=== PATIENT | female | born 1960 | race Caucasian/White ===

== ENCOUNTER 2021-03-06 09:46 | Outpatient (RCR) | payer MEDICARE ==
[~2021-03-06 09:46] MED LIST: ADDERALL 20 MG20 MG PO; AMBIEN10 MG PO; METFORMIN HCL500 MG PO; PIOGLITAZONE15 MG PO; POTASSIUM 10 MEQ; Z.0.ATIVAN1 MG PO; Z.0.CELEXA40 MG PO; Z.0.CO-GESIC 5-5001 PO; Z.0.FLEXERIL10 MG PO; Z.0.HYDROCHLOROTHIA2 PO; Z.0.MULTIVITAMINS1 E; Z.0.NEXIUM40 MG PO; Z.0.RAMIPRIL10 MG PO; Z.0.SIMVASTATIN40 MG PO; Z.0.XANAX0.25 MG PO
== END 2021-03-22 ==
LOC: PT 09:46
PROVIDERS: ATTEND Specialist
DX: M17.12 Unilateral primary osteoarthritis, left knee (principal)

== ENCOUNTER → 2021-12-25 | Day surgery (SDC) | payer MEDICARE ==
[2021-12-24 08:41] LABS: BASOPHILS % 0.5 % (0.0-1.0); EOSINOPHILS # (AUTO) 0.3 (0.0-0.4); EOSINOPHILS % 3.2 % (0.0-6.0); HEMATOCRIT 44.2 % (34.2-44.1); HEMOGLOBIN 14.8 g/dL (12.0-16.0); LYMPHOCYTES # (AUTO) 3.4 (1.0-3.2); LYMPHOCYTES % 40.2 % (18.0-39.1); MEAN CORPUSCULAR HEMOGLOBIN 31.2 pg (28-32); MEAN CORPUSCULAR HGB CONC 33.5 g/dL (31-35); MEAN CORPUSCULAR VOLUME 93.1 fL (81-99); MONOCYTES # (AUTO) 0.7 (0.2-0.8); MONOCYTES % 8.3 % (4.4-11.3); NEUTROPHILS % 47.6 % (38.7-80.0); PLATELET COUNT 236 x10e3/uL (140-360); RED BLOOD COUNT 4.75 x10e6/uL (3.6-5.1); RED CELL DISTRIBUTION WIDTH 12.3 % (11.7-14.4)
[2021-12-24 09:13] LABS: ANION GAP 11.6 mmol/L (8-16); CALCIUM 9.4 mg/dL (8.4-10.2); POTASSIUM 4.6 mmol/L (3.5-5.1)
[~2021-12-25] MED LIST changes: +ALLERGY RELIEF10 M4 PO; +BUPIVACAINE HCL 0.5% INJ 30 ML VIAL INJ ONE; +BUPROPION XL150 MG PO; +ESCITALOPRAM OX20 MG PO; +ESTRADIOL TOP; +ESTROGENS CONJUGATED VAGINAL CR 45 GM TUBE PV ONE; +FENTANYL CITRATE/PF 100MCG/2 ML INJ ONE; +GLIMEPIRIDE2 MG PO; +INDIGOTINDISULFONATE SODIUM 8 MG/ML AMP IJ ONE; +JARDIANCE25 MG PO; +KLONOPIN0.5 MG PO; +LIDOCAINE 1% W/EPINEPHRINE 20 ML VIAL ONE; +LIDOCAINE HCL 2% LOCAL INJ 5 ML SDV VIAL INJ ONE; +MIDAZOLAM HCL 2 MG/2 ML VIAL ONE; +MIRTAZAPINE7.5 MG PO; +MULTI-VITAMIN1 EACH PO; +ONDANSETRON HCL INJ 2MG/ML 2ML 2 MG/ML VIAL ONE; +PANTOPRAZOLE SO40 MG PO; +POVIDONE IODINE 0.05% 0.05 % ML PO ONE; +PROPOFOL IV EMULSION 10 MG/ML 20 ML VIAL ONE; +PROPRANOLOL HCL10 MG PO; +SEVOFLURANE INHAL SOLN 250 ML PEN BTL ONE; +TRULICITY4.5 MG/0.5 SC
[2021-12-25 15:40] VITALS: BP 127/80
== END | disposition home or self-care (01) ==
LOC: OR 10:57
PROVIDERS: ATTEND Obstetrics & Gynecology
DX: N39.3 Stress incontinence (female) (male) (principal); N95.9 Unspecified menopausal and perimenopausal disorder; E11.9 Type 2 diabetes mellitus without complications; E78.00 Pure hypercholesterolemia, unspecified; I10 Essential (primary) hypertension; F41.9 Anxiety disorder, unspecified; Z01.810 Encounter for preprocedural cardiovascular examination; Z01.812 Encounter for preprocedural laboratory examination; Z20.822 Contact with and (suspected) exposure to COVID-19; Z79.84 Long term (current) use of oral hypoglycemic drugs; Z79.899 Other long term (current) drug therapy; Z68.41 Body mass index [BMI] 40.0-44.9, adult
CPT/HCPCS: 36415 ×2; 57288; 80048; 82948; 85025; 93005; C1713; C1781; J2001; J2250; J2405; J2704; J3010; U0002